=== PATIENT | female | born 1995 | race Caucasian/White ===

== ENCOUNTER → 2025-01-25 | Outpatient (CLI) | payer MEDICAID, SELFPAY ==
--- NOTE | 2025-01-25 10:28 | CT_ITS ---
PROCEDURE: SINUS/FACIAL BONE REASON FOR EXAM: Polyposis/sinusitis TECHNIQUE: Contiguous axial images through the sinuses were obtained without intravenous contrast. Multiplanar reconstructions were also performed. COMPARISON: None. FINDINGS: Frontal: Frontal sinuses and frontoethmoidal recesses appear clear. Ethmoid: Moderate thickening Sphenoid: Opacify common bilaterally Maxillary: Severe thickening bilaterally. Turbinates: Mildly thickened Nasal Septum: Midline. No large nasal septal spur. Mastoids/Middle Ears: Clear at visualized levels. Visualized intracranial structures are unremarkable. CT/Sinus/Facial Bone IMPRESSION: Severe chronic sinusitis. One or more dose reduction techniques were used (e.g., Automated exposure contr ol, adjustment of the mA and/or kV according to patient size, use of iterative reconstruction technique). Reading Location: [facility]
== END | disposition home or self-care (01) ==
PROVIDERS: Referring Provider Otolaryngology; Visit Provider Otolaryngology
DX: J32.8 Other chronic sinusitis (principal); J33.9 Nasal polyp, unspecified
CPT/HCPCS: 70486

== ENCOUNTER 2025-03-17 05:45 | Day surgery (SDC) | payer MEDICAID, SELFPAY ==
[2025-03-17] VITALS (12 sets, daily range): BP systolic 113–128; BP diastolic 77–93; PULSE 81–96; RESP 16–18; TEMP 36.4–37; O2SAT 92–98; BMI 26.2
[2025-03-17 06:10] LABS: Internal QC Validated? YES +Cl - CLEAR BKGD
[2025-03-17 06:11] LABS: Pregnancy, Urine Negative Negative
[2025-03-17] MEDS: Oxymetazoline 0.05% 1 SPRAY SPRAY.BTL 3 SPRAY NASAL (06:32)
[2025-03-17] MEDS: 0.9% Normal Saline (1000mL) 1,000 ML 15 ML IV (06:33)
--- NOTE | 2025-03-17 06:49 | PCM.PRE.AN2 ---
ASA Classification* ASA Classification ASA Classification: 2 Assessment & Plan Anesthesia* Anesthesia Assessment Anesthesia Assessment: Discussed sedation and/or anesthesia options, risks, benefits, and alternatives with patient/parents/legal guardian/POA. Questions invited. The patient/parents/legal guardian/POA seems to understand and agrees to proceed with anesthesia plan. Reviewed the physical assessment, medical history, allergy history and patient home medications list prior to surgery/procedure/anesthetic and documented any changes. Performed airway and anesthesia risk assessments. 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 When Was Last Pacemaker Check QUESTION #4 FULL TEXT: You/Your Family Experience fever (hyperthermia) with Anesthesia Last Oral Intake Last Oral intake: Last Oral Intake NPO since 23:00 03/17/25 06:27 Meds taken in AM with sips of No 03/17/25 06:27 water? 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 bundler Female Yes 03/03/25 13:14 HX of Motion Sickness Yes 03/03/25 13:14 HX of N/V After Surgery No 03/03/25 13:14 Non-Smoker Yes 03/03/25 13:14 Duration of Surgery greater Yes 03/03/25 13:14 than 60 minutes Number of Risk Factors 4 03/03/25 13:14 PONV Score Severe Risk 03/03/25 13:14 Height & Weight Height & Weight: Anesthesia: Height & Weight Height 5 ft 3 in 03/17/25 06:27 Weight: 67 kg 03/17/25 06:27 Body Mass Index (BMI) 26.2 03/17/25 06:27 Respiratory Assessment Respiratory Assessment - seasonal greenery bundler: Respiratory Tract Infection Hx - seasonal greenery bundler Hx Respiratory Tract Infection Yes: SINUS INFECTION/ 03/03/25 13:14 RESOLVED STOP Sleep Apnea STOP Sleep Apnea - seasonal greenery bundler: STOP Sleep Apnea - seasonal greenery bundler Hx Hypertension No 03/03/25 13:14 Hx Sleep Apnea No 03/03/25 13:14 CPAP BIPAP Do you snore loudly (louder No 03/03/25 13:14 than talking or can be heard Do you often feel tired/ No 03/03/25 13:14 fatigued/ sleepy during daytime? Has anyone observed you stop No 03/03/25 13:14 breathing during sleep? STOP Results Negative 03/03/25 13:14 QUESTION #5 FULL TEXT : Do you snore loudly (louder than talking or can be heard through closed doors)? 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 Specify any problems Hx of Preganancy in last 3 No 03/03/25 13:14 Months Nurse Filling Out Transfusion DSCHRIBER 03/03/25 13:14 & Questions: Date: 03/03/25 03/03/25 13:14 Time: 13:16 03/03/25 13:14 Patient unable to answer at this time (ie. confused, unrespo /Reproduction History /Reproductive History - seasonal greenery bundler: /Reproductive Hx- seasonal greenery bundler Hx Now No 03/03/25 13:14 Gestational Age (in weeks): EDC: Hx Hx Para Hx Section SAB Yes 03/03/25 13:14 Active Medications Active Medications: Current Medications Generic Name Dose Route Start Last Admin Trade Name Freq PRN Reason Stop Dose Admin Sodium Chloride 1,000 mls @ 15 mls/hr 03/17/25 06:30 03/17/25 06:33 IV 15 mls/hr .Q48H SILVIANO Administration PFSH Medical History Patient is a currently breast-feeding mother History of steroid therapy Thyroid disease Restless legs Difficulty swallowing Asthma Shortness of breath on exertion Non-smoker Normal Holter exam History of irregular heartbeat Home Medications ?Medication ?Instructions ?Recorded ?Last Taken ?Type APRICOT SEED 3 tab PO DAILY 03/03/25 Unknown History ORGANIC KELP POWDER 5 ml PO MOWEFR THYROID 03/03/25 Unknown History albuterol sulfate 90 mcg/actuation 1 inh inhalation Q4H PRN shortness 03/03/25 03/17/25 History breath activated powder inhaler of breath or wheezing cetirizine 10 mg tablet (Aller-Peewee) 10 mg PO DAILY PRN allergy symptoms 03/03/25 Unknown History fluticasone furoate 100 1 inh inhalation QHS 03/03/25 Unknown History mcg/actuation blister powder for inhalation (Arnuity Ellipta) oregano oil 50 mg-flaxseed oil 25 2 cap PO DAILY 03/03/25 Unknown History mg capsule Allergy/AdvReac Type Severity Reaction Status Date / Time No Known Allergies Allergy Verified 03/17/25 06:25 Surgical History No history of previous surgery Social History Smoking Status: Never smoker Review of Systems (Anesthesia) ROS Narrative System reviewed and no additional complaints, except as documented.
--- NOTE | 2025-03-17 07:30 | ETH_PTH ---
PATIENT: RONALDO B[place]MINGHAM LOC: [facility] – [place] U#:[id number] AGE/SX: 29/F ROOM: RE03/17/[address]: Dr. Yoni Armando MD : 1995 BED: DIS: 03/17/2025 SPEC #: [id number] RECD: 03/17/25 12:04 STATUS: KARSTEN EILSE #: [id number] ETELVINA: 03/17/25 07:[address]: Yoni Armando DEPT: SURGICAL PATHOLOGY RECD BY: Aubrey Llanes ENTERED: 03/17/25 12:04 SP TYPE: ETH TISS OTHR DR: No Primary Care Phys Tissues: A - Ethmoid sinus, NOS B - Ethmoid sinus, NOS Procedures: Decalcification bone/plaque Surgery Specimen Level IV HEADER OPERATION: Functional endoscopic sinus surgery PRE-OP DIAGNOSIS: Nasal polyp, deviated nasal septum, chronic sinusitis, anosmia TISSUE SUBMITTED: A- Left sinus contents, B- Right sinus contents MICROSCOPIC DIAGNOSIS A. Left sinus, contents, FESS: * Polypoid fragments of inflamed sinonasal mucosa with numerous eosinophils. * Fragments of trabecular bone with reactive changes. B. Right sinus, contents, FESS: * Polypoid fragments of inflamed sinonasal mucosa with numerous eosinophils. * Fragments of trabecular bone with reactive changes. MICROSCOPIC DESCRIPTION Slides are reviewed. GROSS DESCRIPTION A. Received in formalin in a container labeled with the patient's name, date of , and left sinus contents are multiple red-sanchez fragments of soft tissue measuring 2.2 x 1.8 x 1.0 cm in aggregate. There are multiple white-stack, flimsy fragments of firm possible bone measuring 1.0 x 1.0 x 0.2 cm in aggregate. Submitted entirely as follows,A1. Soft tissueA2. Possible bone, following decalcification B. Received in formalin in a container labeled with the patient's name, date of , and right sinus contents are multiple red-sanchez fragments of soft tissue measuring 3.0 x 1.7 x 0.3 cm in aggregate. There are multiple white-stack, flimsy fragments of firm possible bone measuring 1.2 x 0.7 x 0.3 cm in aggregate. Submitted entirely as follows:B1. Soft tissueB2. Possible bone, following decalcification [facility] 03-17-2025 CPT:34576v2,57572d4
--- NOTE | 2025-03-17 07:37 | DS.PCM_ITS ---
Providers Primary Care Physician: No Primary Care Phys Reason For Visit: Functional Endoscopoic Sinus Surgery Medications at Discharge Home Medications APRICOT SEED 3 tab PO DAILY 03/03/25 ORGANIC KELP POWDER 5 ml PO MOWEFR THYROID 03/03/25 albuterol sulfate 90 mcg/actuation breath activated powder inhaler 1 inh inhalation Q4H PRN shortness of breath or wheezing 03/03/25 cetirizine 10 mg tablet (Aller-Peewee) 10 mg PO DAILY PRN allergy symptoms 03/03/25 fluticasone furoate 100 mcg/actuation blister powder for inhalation (Arnuity Ellipta) 1 inh inhalation QHS 03/03/25 oregano oil 50 mg-flaxseed oil 25 mg capsule 2 cap PO DAILY 03/03/25 Weight / BMI Weight Weight: 67 kg Body Mass Index (BMI) 26.2 ABG / Lab / Microbiology Data Laboratory: Laboratory Results - last 24 hr 03/17/25 06:00: TSH 2.530, Urine Test Negative D/C Instructions Discharge Diet: No restrictions Discharge Activity: Return to Normal Activity Additional Dressing/Incision Instructions: Irrigate 4x/day starting 03/18/25 DC O2, CPAP, BIPAP Needs Home O2 Discharge instructions: No Please Follow Up With: Yoni Armando MD When: next week Meaningful Use Info Meaningful Use Meaningful Use Diagnoses (Choose all that apply): None applicable Ischemic Stroke Statin Dosing Therapy Reference: STATIN DOSE THERAPY REFERENCE: * Patients > 75 years receive moderate or high dose statin therapy. * Patients 75 years or YOUNGER should receive HIGH intensity statin dose unless contraindicated. You will be required to document reason for non-treatment if statin daily dose does not meet guidelines. HIGH DOSE STATIN THERAPY DAILY Atorvastatin > than or = to 40 mg Rosuvastatin > than or = to 20 mg Amlodipine + Atorvastatin > than or = to 2.5/40 mg Ezetimibe + Simvastatin 10/80 mg Simvastatin 80mg Discharge Plan Admission Attending Provider: Yoni Armando Primary Care Provider: Care Physician,No Primary Instructions Print Language: Bur[place]ian Discharge Orders/Prescriptions Prescriptions: No Action cetirizine [Aller-Peewee] 10 mg tablet 10 mg PO DAILY PRN (Reason: allergy symptoms) oregano oil-flaxseed oil 50-25 mg capsule 2 cap PO DAILY APRICOT SEED 3 tab PO DAILY albuterol sulfate 90 mcg/actuation aerosol powdr breath activated 1 inh inhalation Q4H PRN (Reason: shortness of breath or wheezing) Arnuity Ellipta 100 mcg/actuation blister with device 1 inh inhalation QHS ORGANIC KELP POWDER 5 ml PO MOWEFR Referrals / Follow Up: Care Physician,No Primary [Primary Care Provider] - Disposition Disposition (needs filled in before D/C Order can be placed): Home, Self Care
[2025-03-17] MEDS: Lidocaine 1% /Epi 1:100 (20ml) 20 ML Vial (08:00)
[2025-03-17] MEDS: Oxymetazoline 0.05% 1 SPRAY SPRAY.BTL 15 SPRAY ×2 (08:00)
--- NOTE | 2025-03-17 09:01 | OP.PCM_ITS ---
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 The patient was placed in the supine position on the operating table. The patient was given sufficient general endotracheal anesthesia. The head of bed was elevated 30 degrees. The navigation system was placed and verified per protocol and found to be accurate. 0 and 30 degrees rigid nasal endoscopes were used throughout th e entire case. The middle turbinate uncinate process and polyps were injected with 1% lidocaine with epinephrine bilaterally. The right middle turbinate was medialized with a [place] elevator. Polyp was removed from the middle meatus using a sinus shaver. A ball-tipped sinus seeker was placed into the patient's maxillary sinus. The antrostomy was created with a backbiter. It was widened posteriorly with Jn-Cut forceps. The uncinate process was taken down using a microdebrider. Tissue was removed from the maxillary sinus using a microdebrider with a 30 degree rigid nasal endoscope for visualization. Next, the ethmoid bulla was opened with a small curette. Anterior and posterior ethmoidectomy were then carried out using curette, sinus shaver and 45 degree Blakesley Royer forceps. Ethmoid cells were verified for relation to the skull base and orbit prior to being entered with the navigation system. The front face of the sphenoid was opened with a suction. Nj-Cut forceps were then used to widen the opening. I then placed Afrin pledgets into the sinonasal cavity. Next attention was turned to the left side. The middle turbinate was medialized with a [place] elevator. A polyp was removed from the middle meatus using a sinus shaver. A backbiter was used to create the maxillary antrostomy. It was widened with a Jn-Cut forceps. The uncinate process was taken down using a sinus shaver. Tissue was removed from the maxillary sinus using a microdebrider with a 30 degree rigid nasal endoscope for visualization. The ethmoid bulla was opened with a small curette. Anterior posterior ethmoidectomy were then carried out using a sinus shaver curette and [place] Royer forceps. Ethmoid cells were verified for relation to the skull base and orbit prior to being entered with the navigation system. The sphenoid was then opened on the left side using a suction and confirmed with navigation. The opening was widened with a microdebrider. Hemostasis was then achieved using Afrin pledgets. Some sparing suction cautery was used for hemostasis as well. The pledgets were then removed bilaterally and Arthur powder was applied bilaterally for absolute hemostasis. The procedure was then terminated. The patient was then awoken and brought to the recovery room in stable condition blood loss less than 20 cc replacement none. Sponge, needle, instrument count were correct at the end of the procedure. Surgical Findings: extensive polypoid disease Complications Complications: No
--- NOTE | 2025-03-17 09:22 | PCM.POST.ANE ---
Anesthesia: Postop Eval I Current Vital Signs Temperature: 98.4 F Pulse Rate: 96 Blood Pressure: 117/78 Respiratory Rate: 18 Pulse Ox: 95 Oxygen Delivery Method: Room Air Assessment Airway patent: Yes Spontaneous unlabored respirations: Yes Mental status: Awake nausea: No Vomiting: No Anesthesia Complication: No Fluid Hydration Crystalloid volume administer (ml): 1,200 Total IV fluid infused: 1,200 Progress Note Anesthesia document: Postop Eval 1 completed: Yes
--- NOTE | 2025-03-17 09:36 | POSTOPAN2_ITS ---
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
--- NOTE | 2025-03-17 09:36 | PCM.POSTANE2 ---
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
[2025-03-17] MEDS: Acetaminophen 325 MG Tablet 650 MG PO (10:37)
== END 2025-03-17 11:28 | disposition home or self-care (01) ==
LOC: SDC 05:45 → AC 05:46
PROVIDERS: Anesthesiology; Referring Provider Otolaryngology; Visit Provider Otolaryngology
PROC: (CPT 31267; principal; 2025-03-17 07:00)
DX: J34.2 Deviated nasal septum (principal); J32.8 Other chronic sinusitis; J33.9 Nasal polyp, unspecified; E07.9 Disorder of thyroid, unspecified; R43.0 Anosmia
CPT/HCPCS: 31267; 31287; 00160; 81025; 84443; 88305; 88311; A4216; J2405